=== PATIENT | female | born 1975 | race Caucasian/White ===

== ENCOUNTER 2023-08-05 16:22 | Emergency (ER) | payer SELFPAY ==
[~2023-08-05] VITALS: Ht 167.6 cm; Wt 72.0 kg
[2023-08-05 16:25] VITALS: BP 143/93; PULSE 92; RESP 20; TEMP 98.5; O2SAT 99
== END 2023-08-05 21:45 | disposition left against medical advice (07) ==
LOC: ER 16:45
DX: I10 Essential (primary) hypertension (principal); Z53.21 Procedure and treatment not carried out due to patient leaving prior to being seen by health care provider
CPT/HCPCS: 99281